=== PATIENT | male | born 1960 | race Caucasian/White ===

== ENCOUNTER 2019-07-01 08:25 | Day surgery (SDC) | payer BC ==
[~2019-07-01 08:25] MED LIST: CEFAZOLIN SODIUM 2 GM in DEXTROSE 5%-WATER 100 ML IV PRN
[2019-07-01] MEDS ORDERED: BUPIVACAINE HCL 0.5 % INJ/PF 30 ML SDV ONE ×2 (09:01→10:03)
[2019-07-01] MEDS ORDERED: FENTANYL CITRATE INJ/PF 100 MCG/2 ML AMPUL ONE (09:22)
[2019-07-01] MEDS ORDERED: MIDAZOLAM 2 MG/2 ML INJ ONE (09:22)
[2019-07-01] MEDS ORDERED: PROPOFOL INJ 200 MG/20 ML VIAL IV ONE (09:22)
[2019-07-01] MEDS ORDERED: ONDANSETRON HCL INJ/PF 4 MG/2 ML SDV ONE (09:22)
[2019-07-01] MEDS ORDERED: DEXAMETHASONE SOD PHOSPHATE INJ 4 MG/1 ML VIAL ONE (09:22)
[2019-07-01 09:42] LABS: ABSOLUTE BASOPHILS # (AUTO) 0.1 10^3/uL (0.0-0.2); ABSOLUTE EOSINOPHILS # (AUTO) 0.2 10^3/uL (0.0-0.6); ABSOLUTE LYMPHOCYTES (AUTO) 1.8 10^3/uL (0.5-4.7); ABSOLUTE MONOCYTES (AUTO) 0.5 10^3/uL (0.1-1.4); ABSOLUTE NEUT (AUTO) 4.5 10^3/uL (1.7-8.2); BASOPHILS % (AUTO) 1.3 % (0-2); EOSINOPHILS % (AUTO) 2.3 % (0-6); HEMATOCRIT 42.1 % (37.9-51.0); HEMOGLOBIN 15.1 g/dL (13.5-17.0); LYMPHOCYTES % (AUTO) 25.9 % (13-45); MEAN CORPUSCULAR HEMOGLOBIN 31.8 pg (27.0-33.4); MEAN CORPUSCULAR HGB CONC 35.9 g/dL (32.0-36.0); MEAN CORPUSCULAR VOLUME 89 fl (80-97); MONOCYTES % (AUTO) 7.4 % (3-13); PLATELET COUNT 238 10^3/uL (150-450); RED BLOOD COUNT 4.74 10^6/uL (4.35-5.55); RED CELL DISTRIBUTION WIDTH 13.4 % (11.5-14.0); SEGMENTED NEUTROPHILS % (AUTO) 63.1 % (42-78); TOTAL CELLS COUNTED % (AUTO) 100 %; WHITE BLOOD COUNT 7.1 10^3/uL (4.0-10.5)
[2019-07-01 10:03] LABS: ALBUMIN 4.4 g/dL (3.5-5.0); ALKALINE PHOSPHATASE 58 U/L (38-126); ANION GAP 8 (5-19); ASPARTATE AMINO TRANSFERASE 29 U/L (17-59); BILIRUBIN,TOTAL 0.7 mg/dL (0.2-1.3); BLOOD UREA NITROGEN 21 mg/dL (7-20); CALCIUM 9.3 mg/dL (8.4-10.2); CARBON DIOXIDE 26 mmol/L (22-30); CHLORIDE 103 mmol/L (98-107); GLUCOSE 100 mg/dL (75-110); POTASSIUM 4.1 mmol/L (3.6-5.0); TOTAL PROTEIN 7.6 g/dL (6.3-8.2)
[2019-07-01] MEDS ORDERED: DIPHENHYDRAMINE HCL 50 MG/ML VIAL IV PRN (11:54)
[2019-07-01] MEDS ORDERED: MORPHINE SULFATE 10 MG/ML INJ IV PRN (11:54)
[2019-07-01] MEDS ORDERED: OXYCODONE-ACETAMINOPHEN 5-325 MG TABLET PO PRN ×3 (11:54→12:41)
[2019-07-01] MEDS ORDERED: PROMETHAZINE HCL INJ 25 MG/1 ML VIAL IV PRN ×2 (11:54)
[2019-07-01] MEDS ORDERED: FENTANYL CITRATE INJ/PF 100 MCG/2 ML AMPUL IV PRN ×3 (11:54)
[2019-07-01] MEDS ORDERED: MEPERIDINE HCL/PF INJ 25 MG/1 ML DISP.SYRIN IV PRN (11:54)
[2019-07-01] MEDS ORDERED: ONDANSETRON HCL INJ/PF 4 MG/2 ML SDV IV PRN ×2 (11:54→12:48)
[2019-07-01] MEDS ORDERED: KETOROLAC TROMETHAMINE INJ/PF 30 MG/1 ML SDV ONE (12:40)
[2019-07-01] MEDS ORDERED: ACETAMINOPHEN 1,000 MG/100 ML RTUPB IV ONE (12:40)
--- NOTE | 2019-07-01 12:40 | Operative Report ---
Operative Report DATE OF SURGERY: 07/01/19 PREOPERATIVE DIAGNOSIS: Left knee pain POSTOPERATIVE DIAGNOSIS: 1. Left knee medial meniscus posterior horn partial tear. 2. Left knee chondromalacia medial femoral condyle. 3. Left knee lateral meniscus anterior horn partial tear. 4. Left knee synovitis medial, lateral, patellofemoral compartments. 5. Left knee patellofemoral plica OPERATION: 1. Left knee partial meniscectomy medial meniscus posterior horn partial tear. 2. Left knee shaving chondroplasty medial femoral condyle. 3. Left knee partial meniscectomy lateral meniscus anterior horn partial tear. 4. Left knee therapeutic synovectomy medial, lateral, patellofemoral compartments. 5. Left knee excision patellofemoral plica SURGEON: JAMES HERNANDEZ ANESTHESIA: GA COMPLICATIONS: None ESTIMATED BLOOD LOSS: Minimal PROCEDURE: Indications for procedure: The patient is a 58-year-old man with recalcitrant pain in his left knee. He has failed nonoperative treatment including 2 prior cortisone injections. Description of procedure: Following the induction of a general anesthetic and administration of 2 g of Ancef, the patient was positioned supine on the operating room table. All bony prominences were padded. The left lower extremity was sterilely prepped and draped in the usual fashion. The leg was exsanguinated and the tourniquet inflated to 275 mmHg. We first started out with a lateral portal. The localization was performed followed by sharp incision through skin only. Blunt injury into the patellofemoral compartment was performed. Diagnostic arthroscopy was then performed. There was found to be synovitis and a large plica in the patellofemoral compartment. Going into the medial compartment there was significant synovitis as well as a obvious unstable tear of the posterior horn of the medial meniscus. There was diffuse grade II chondromalacia of the medial femoral condyle. The ACL and PCL were intact. Going into the lateral compartment there was synovitis associated with a small tear of the anterior horn of the lateral meniscus. The arthroscope was then placed back into the medial compartment. A separate medial incision was then made. Needle localization was performed followed by sharp incision through skin and blunt entry. A shaver was brought in and synovectomy was performed. This was followed by a standard biter which removed the unstable posterior horn of the medial meniscus. Shaver was then brought into contour the medial meniscus. The lateral compartment was then entered and sign of ectomy and partial excision of the lateral meniscus was then performed. Shaver and arthroscope were then placed in the patellofemoral compartment where a therapeutic synovectomy as well as an excision of the patellofemoral plica was performed. Following completion of the surgical procedure a thorough diagnostic arthroscopy was again performed to ensure there were no unstable fragments in the knee joint particularly in the lateral gutter. Copious irrigation of the joint was performed with the arthroscope. The arthroscope and shaver were then removed. The lateral portal was closed with a subcuticular suture. The medial portal was left open specifically for the egress of fluid. 0.5% Marcaine was injected for postoperative analgesia and a bulky sterile dressing was applied. The patient tolerated the procedure without complication and was brought to recovery room in stable condition.
[2019-07-01] MEDS ORDERED: OXYCODONE-ACETAMINOPHEN 5-325 MG TABLET ONE (13:06)
[2019-07-01 14:14] VITALS: BP 133/71
== END 2019-07-01 14:10 | disposition home or self-care (01) ==
LOC: OROUT 08:25
PROVIDERS: ATTEND Orthopaedic Surgery
DX: M23.322 Other meniscus derangements, posterior horn of medial meniscus, left knee (principal); M23.342 Other meniscus derangements, anterior horn of lateral meniscus, left knee; M65.862 Other synovitis and tenosynovitis, left lower leg; M67.52 Plica syndrome, left knee; M25.562 Pain in left knee; I10 Essential (primary) hypertension; Z79.899 Other long term (current) drug therapy
CPT/HCPCS: 36415; 85025; 80053; 01400; 29880; 29876; J2250; J3490; J0690; J1100; J3010; J1885; J2405; J7060; J2704; J0131; 1400